=== PATIENT | male | born 1985 | race Caucasian/White ===

== ENCOUNTER 2025-04-23 01:26 | Emergency (ER) | payer OTHER, SELFPAY ==
--- OUTSIDE RECORDS SUMMARY | 2025-04-23 01:28 | XMS_ITS | Encounter Summary ---
Author Organization [facility] Address [address] [place] [address] Care Team Providers Care Civil Engineering Director Name Role Phone Gregorio Pina PA-C Primary Care Provider [phone] Reason for Visit * Reason Comments BLEEDING, PENIS Encounter Details Date Type Department Care Team (Late st Contact Info) Description 08/04/2018 Nurse Triage Careline [address] 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 Having pain currently at base of penis and between penis and testicles. Difficult for him to sit comfortably. No fever. Left testicle looks possibly a bit swollen. Had vasectomy on 07/28 by [facility] by Dr. Higuera Reviewed with patient pertinent medical history(as it related to the call): Yes Reviewed with patient pertinent medications (as they relate to call): N/A Call was warm-transferred over to [facility] Nurse Triage. Katt Redman RN 08/04/2018, 11:51 AM * Federico Trotter - 08/04/2018 9:55 AM CDT Verified patient identity using three identifiers: Yes Caller's relationship to patient: Self At which care system or clinic is the patient normally seen? [facility] ([facility]) Clinics Symptoms Describe the reason for call/symptoms (include location and duration if applicable): Pt states thathe has discharge and also a little bit of blood in his under wear this morning when he had woke up this morning. Plan:The current callback time to speak with a nurse is 60 Minutes. If your symptoms change or worsen, or if you have not received a call back in the stated timeframe, please call us back documented in this encounter Plan of Treatment Not on file documented as of this encounter Visit Diagnoses Not on filedocumented in this encounter Additional Health Concerns Infection Onset Date Last Indicated Resolved Time R/O COVID19 05/03/2020 05/03/2020 05/10/2020 3:17 AM CDT documented as of this encounter Care Teams Civil Engineering Director Relationship Specialty Start Date End Date Gregorio Pina PA-C [address] [place] [address] PCP - General Physician Brass Instrument Repair Technician 12/14/20 documented as of this encounter
--- OUTSIDE RECORDS SUMMARY | 2025-04-23 01:28 | XMS_ITS | Clinical Summary ---
Author Organization [facility] Address [address] [place] [address] Care Team Providers Care Warehouse Associate Driver Name Role Phone Gregorio Pina PA-C Primary Care Provider [phone] Source Comments You are receiving this document as you are listed as the primary care provider,follow-up provider, or the patient has been referred to you for consultation.This is in compliance with the Medicare and[facility] EHR Incentive Program,which states Providers who transition their patient to another setting of careor provider of care or refers their patient to another provider of care shouldprovide summary care record for each transition of care or referral. [email or web address] Allergies No known active allergies Medications * This document contains information received from the source organization and may not represent a complete record from that organization. medical cannabis patient certified Take as instructed . 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) TAKE 1 TABLET (4 MG) BY MOUTH EVERY DAY AT BEDTIME NEEDED 25 Tablet 4 Active Additional Information Patient not taking.Reported on 09/09/2024 Active Problems Problem Noted Date Diagnosed Date FHx: colon cancer 08/09/2019 Overview (08/09/2019): Grandfather at 40 Cousin Polyps 38 Spinal stenosis 07/19/2018 Allergic rhinitis Cystic acne vulgaris Resolved Problems Problem Noted Date Diagnosed Date Resolved Date Attention deficit hyperactiv ity disorder (ADHD) 02/28/2017 01/15/2024 Anxiety state 07/24/2014 01/15/2024 Overview (06/14/2017): Anxiety state, unspecified Nicotine addiction 12/09/2013 7 GERD without esophagitis Immunizations Immunization Administration Dates Next Due DTP 05/16/1990, 7,05/23/1985,03/25,01/01/1985 Flu Vac Preserv Free (3+yrs) 07/14/2011,07/20/20 09 HepB Ped/Adol (0-18 yrs) 08/28/2006,07/23,01/07/2002,10/21,06/05/1997 Hib (ActHIB) 11/12/1986 IPV (Polio) 05/16/1990, 7,03/25/1985,01/01 Influenza IIV4 (Quadrivalent ) 0.5mL ([id number]) 08/09/2019,08/29/2014,08/06/2013 MMR 06/05/1997,04/08/1986 Meningococcal MCV4, Unspecif ied Formulation 09/03/2002 TDAP (ADACEL) 04/03/2008 Td 06/05/1997 Td (7+ yrs) 04/10/2018 Tdap 10/23/2006 Family History Medical History Relation Name Comments Allergies Mother Cancer, Colon Maternal Grandfather Cancer, Lung Maternal Grandmother Coronary Artery Disease Paternal Grandfather Dementia Paternal Grandmother Relation Name Status Comments Father Alive Mother Alive Maternal Grandfather Maternal Grandmother Paternal Grandfather Paternal Grandmother Social History Tobacco Use Types Packs/Day Years Used Date Smoking Tobacco: Former Cigarettes 0.3 10 Smokeless Tobacco: Never Tobacco Cessation:Counseling Given: No Comments:Quit smoking: Alcohol Use Standard Drinks/Week Comments Yes 3 (1 standard drink = 0.6 oz pur e alcohol) PHQ-2 Answer Date Recorded PHQ-2 Score 0 01/21/2021 Sex and Gender Information Value Date Recorded Sex Assigned at Not on file Legal Sex Male 1:04 AM CDT Gender Identity Not on file Sexual Orientation Not on file 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 Not on file Not on ludin e Last Filed Vital Signs Vital Sign Reading Time Taken Comments Blood Pressure 116/65 09/09/2024 10:54 AM ENGINEERING LECTURER Pulse 67 09/09/2024 10:54 AM ENGINEERING LECTURER Temperature 36.6 C (97.9 F) 09/09/2024 10:54 AM ENGINEERING LECTURER Respiratory Rate 18 09/09/2024 10:54 AM ENGINEERING LECTURER Oxygen Saturation 97% 09/09/2024 10:54 AM ENGINEERING LECTURER Inhaled Oxygen Concentration - - Weight 84 kg (185 lb 1.6 oz) 10/08/2020 1:41 PM ENGINEERING LECTURER Height 186.7 cm (6' 1.5) 10/08/2020 1:41 PM ENGINEERING LECTURER Body Mass Index 24.09 10/08/2020 1:41 PM ENGINEERING LECTURER Plan of Treatment Health Maintenance Due Date Last Done Comments Hep C Screening (Preventive Services) 1984 HIV Screening (Preventive Services) 2000 Adult Preventive Visit 2002 Cholesterol 2019 08/06/2013, 02/15/2012 COVID-19 Vaccine ( season) 2024 Influenza Vaccine (Season Ended) 2025 08/09/2019, 08/29/2014, 08/06/2013, Additional history exists DTaP/Tdap/Td Vaccine (10 - Tdap) 04/10/2028 04/10/2018, 04/03/2008, 10/24/2006, Additional history exists Zoster/Shingles Vaccine (1 of 2) 2034 Hib Vaccine Completed 11/12/1986 IPV (Polio) Vaccine Completed 05/16/1990, 11/12/1986, 03/25/1985, Additional history exists MCV4 Vaccine Completed 09/03/2002 HepB Vaccine Completed 08/28/2006, 07/23, 01/07/2002, Additional history exists HPV Vaccine Aged Out No longer eligi ble based on patient's age to complete this topic HepA Vaccine Aged Out No longer eligi ble based on patient's age to complete this topic Meningococcal B Vaccine Aged Out No l onger eligible based on patient's age to complete this topic Pneumococcal Vaccine Aged Out No long er eligible based on patient's age to complete this topic Procedures Procedure Name Priority Date/Time Associated Diagnosis Comments LIPID PANEL & DIRECT LDL (IF NEEDED) Routine 08/06/2013 10:05 AM CDT Routine physical examination from Last 3 Months or Most Recently Relevant to Health Maintenance Results * (ABNORMAL) Lipid Panel and Direct LDL(If Needed) (08/06/2013 10:05 AM CDT) Cholesterol 161 0 - 200 mg/dL HP CONVERSION Triglycerides 175(H) 0 - 149 mg/dL HP CONVERSION HDL Cholesterol 31(L) >39 mg/dL HP CONVERSION Cholesterol/HDL Ratio Screen 5.2 HP CONVERSION LDL Calculated 95 19 - 130 mg/dL HP CONVERSION Hours Fasting 10 HP CONVERSION 08/06/2013 10:0 5 AM CDT 08/06/2013 11:49 AM CDT Narrative HP CONVERSION - 08/06/2013 3:09 PM CDT Performed at [facility], [address] [place] [address] Rosario Higuera MD LAB_[email or web address] Final Result HP CONVERSION from Last 3 Months or Most Recently Relevant to Health Maintenance Insurance [employer] Care Teams Warehouse Associate Driver Relationship Specialty Start Date End Date Gregorio Pina PA-C [address] [place] [address] PCP - General Physician Electrical Development Engineer 12/14/20
--- OUTSIDE RECORDS SUMMARY | 2025-04-23 01:28 | XMS_ITS | Clinical Summary ---
Author Organization [email or web address] Address [address] [place] [address] Care Team Providers Care Stock Fitter Name Role Phone Rosario Higuera MD Primary Care Provider Allergies No known active allergies Medications HYDROcodone-ac etaminophen ([place]) 5-325 mg per tabletIndicati ons:Closed avulsion fracture of right ankle, initial encounter Take 1 Tablet by mouth every 4 hours if needed for Pain. Max acetaminophen dose: 4000 mg in 24 hrs. 8 Tablet Active Social History Tobacco Use Types Packs/Day Years Used Date Smoking Tobacco: Never Assessed Sex and Gender Information Value Date Recorded Sex Assigned at Not on file Legal Sex Male 10:00 AM CDT Gender Identity Not on file Sexual Orientation Not on file Obstetrics History Last Filed Vital Signs Vital Sign Reading Time Taken Comments Blood Pressure 109/60 06/11/2022 3:49 PM CDT Pulse 86 06/11/2022 3:49 PM CDT Temperature 36.8 C (98.2 F) 06/11/2022 3:49 PM CDT Respiratory Rate 18 06/11/2022 3:49 PM CDT Oxygen Saturation 97% 06/11/2022 3:49 PM CDT Inhaled Oxygen Concentration - - Weight 86.2 kg (190 lb) 06/11/2022 3:49 PM CDT Height 188 cm (6' 2) 06/11/2022 3:49 PM CDT Body Mass Index 24.39 06/11/2022 3:49 PM CDT Plan of Treatment Not on file Insurance [facility] Care Teams Stock Fitter Relationship Specialty Start [place] [id number] [place] [address] PCP - General Family Practice 07/08/17
--- OUTSIDE RECORDS SUMMARY | 2025-04-23 01:28 | XMS_ITS | Clinical Summary ---
Author Organization [facility] Address [address] [place] [address] Care Team Providers Care Plate Former Name Role Phone Rosario Higuera Primary Care Provider Allergies No known active allergies Medications DOXYCYCLINE HYCLATE 100 MG OR CAPSIndications: Acne twice daily 60 2 04/03/2008 Active Active Problems Problem Noted Date Diagnosed Date CARDIOVASCULAR SCREENING; LDL GOAL LESS THAN 160 12/02/2009 Tobacco abuse 04/03/2008 Acne 04/03/2008 Gynecomastia, male 04/03/2008 Immunizations Immunization Administration Dates Next Due TDAP Vaccine (Adacel) 04/03/2008 Family History Medical History Relation Comments Family History Negative Father Cancer - colorectal Maternal Grandfather Cancer Maternal Grandmother Lung CA Family History Negative Mother Heart Disease Paternal Grandfather NE, triple bipass Hypertension Paternal Grandfather Hypertension Paternal Grandmother Relation Status Comments Father Alive Maternal Grandfather Maternal Grandmother Mother Alive Paternal Grandfather Paternal Grandmother Sister 1 Alive Sister 2 Alive Social History Tobacco Use Types Packs/Day Years Used Date Smoking Tobacco: Every Day Cigarettes 1 10 Smokeless Tobacco: Current Chew Comments:chewed for 8 years, quit in 12/28 Alcohol Use Standard Drinks/Week Comments No 0 (1 standard drink = 0.6 oz pur e alcohol) Sex and Gender Information Value Date Recorded Sex Assigned at Not on file Legal 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 Gender Identity Not on file Sexual Orientation Not on file Last Filed Vital Signs Vital Sign Reading Time Taken Comments Blood Pressure 116/67 01/01/2019 1:29 PM CDT Pulse 78 08/15/2008 11:00 AM CDT Temperature 37.1 C (98.8 F) 01/01/2019 1:29 PM CDT Respiratory Rate 16 01/01/2019 1:29 PM CDT Oxygen Saturation 95% 01/01/2019 1:29 PM CDT Inhaled Oxygen Concentration - - Weight 92.1 kg (203 lb) 08/15/2008 11:00 AM CDT Height 186.7 cm (6' 1.5) 04/03/2008 2:30 PM CDT Body Mass Index 26.42 04/03/2008 2:30 PM CDT Plan of Treatment Not on file Insurance [employer] Care Teams Plate Former Relationship Specialty Start Date End Date Rosario Higuera PCP - General Family Practice 01/01/19
[2025-04-23 01:30] VITALS: BP 119/71; PULSE 74; RESP 18; TEMP 36.7; O2SAT 99; BMI 24.4
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
[2025-04-23] MEDS: LIDOCAINE 1%-EPI 1:100,000 20 ML INFILTRATI (01:48)
[2025-04-23] MEDS: TETANUS/DIPHTH/PERTUSSIS 0.5 ML SYRINGE IM (02:03)
[2025-04-23 02:39] VITALS: BP 119/71; PULSE 74; RESP 18; TEMP 36.7
== END 2025-04-23 02:15 | disposition home or self-care (01) ==
LOC: ED 02:10
PROVIDERS: Emergency Provider Family Medicine
DX: S01.511A Laceration without foreign body of lip, initial encounter (principal); W51.XXXA Accidental striking against or bumped into by another person, initial encounter
CPT/HCPCS: 12011; 90471; 90715; 99283